=== PATIENT | female | born 1955 | race Caucasian/White ===

== ENCOUNTER 2019-03-20 20:24 | Emergency (ER) | payer OTHER, MEDICAID ==
[~2019-03-20] VITALS: Ht 162.6 cm; Wt 61.9 kg
[2019-03-20 20:26] VITALS: BP 101/59
--- NOTE | 2019-03-20 20:26 | NUR ---
TO BED # 11 AMBULATORY
--- NOTE | 2019-03-20 20:30 | NUR ---
63 Y/O FEMALE BIB SISTER C/O FEVER X UNKNOWN TIME. DENIES N/V/D. DENIES URINARY SYMPTOMS. SISTER STATES PT HAS PRODUCTIVE COUGH X1 WEEK. DENIES CONGESTION. PT HAS RECEIVED NO MEDICATIONS FOR FEVER. RR EVEN AND UNLABORED. LUNG SOUNDS CLEAR THROUGHOUT. VSS. SISTER AT BEDSIDE. MEDHX: SCHIZOPHRENIA, HLD ALLERGIES: NKA
--- NOTE | 2019-03-20 20:56 | NUR ---
INFLUENZA SWAB COLLECTED FROM PT
--- NOTE | 2019-03-20 20:56 | NUR ---
XRAY AT BEDSIDE.
--- NOTE | 2019-03-20 21:25 | NUR ---
PT RESTING IN BED, RR EVEN AND UNLABORED. PT CALM AND PLEASANT. VSS. SISTER AT BEDSIDE.
[2019-03-20 21:57] VITALS: BP 101/59
--- NOTE | 2019-03-20 21:59 | NUR ---
Patient discharged with v/s stable. Written and verbal after care instructions given and explained. Patient alert, oriented and verbalized understanding of instructions. Ambulatory with steady gait. All questions addressed prior to discharge. ID band removed. Patient advised to follow up with PMD. Rx of PREDNISONE, MOTRIN, AND AZITHROMYCIN given. Patient educated on indication of medication including possible reaction and side effects. Opportunity to ask questions provided and answered. PT ACCOMPANIED BY SISTER UPON DISCHARGE
== END 2019-03-20 21:59 | disposition home or self-care (01) ==
LOC: MED 20:24
DX: J18.8 Other pneumonia, unspecified organism (principal)
CPT/HCPCS: 71045; 81002; 87804; 99284; Q0092

== ENCOUNTER 2019-07-02 11:31 | Emergency (ER) | payer OTHER, MEDICAID ==
[~2019-07-02] VITALS: Ht 157.5 cm; Wt 74.8 kg
[2019-07-02 11:35] VITALS: BP 154/81
[2019-07-02] MEDS ORDERED: ACETAMINOPHEN 325 MG TAB PO ONE (11:40)
[2019-07-02 13:42] VITALS: BP 154/81
== END 2019-07-02 13:42 | disposition home or self-care (01) ==
LOC: MED 11:31
DX: S83.92XA Sprain of unspecified site of left knee, initial encounter (principal); I10 Essential (primary) hypertension; E07.9 Disorder of thyroid, unspecified; W01.0XXA Fall on same level from slipping, tripping and stumbling without subsequent striking against object, initial encounter; Y93.89 Activity, other specified; Y92.89 Other specified places as the place of occurrence of the external cause; Y99.8 Other external cause status
CPT/HCPCS: 73562; 99283; Q0092